=== PATIENT | female | born 1940 | race Caucasian/White ===

== ENCOUNTER → 2018-01-30 | Outpatient (CLI) | payer MEDICARE ==
[2018-01-30 13:28] LABS: T4, Free (Free Thyroxine) 1.05 ng/dL (0.78-2.19)
--- NOTE | 2018-01-30 15:48 | US ---
EXAMINATION TYPE: US thyroid st tissue head/neck DATE OF EXAM: 01/30/2018 COMPARISON: NONE CLINICAL HISTORY: 77-year-old female E05.00 Thyrotoxicosis with diffuse goiter without. TECHNIQUE: Multiple sonographic images of the thyroid gland are obtained. FINDINGS: GLAND SIZE: Right Lobe: 3.6 x 1.7 x 1.3 cm Overall Parenchyma: heterogenous Left Lobe: 4.6 x 1.5 x 0.9 cm Overall Parenchyma: heterogeneous Isthmus Thickness: 0.3 cm NODULES LEFT: # of nodules measured on left: 2 1. 1.2 X 0.9 x 1.2 cm hypoechoic solid nodule at the lower pole with well-defined margins; This nod ule is wider than tall and shows no intranodular vascularity. Prior size: No prior 2. 0.5 X 0.4 x 0.5 cm hypoechoic solid nodule at the mid pole with well-defined margins;. This nodu le is wider than tall and shows intranodular vascularity. Prior size: No prior Bilateral neck scanned, no evidence of lymphadenopathy. Two nodules within left lobe. IMPRESSION: 2 solid nodules on the left measuring 1.2 and 0.5 cm. If the patient has thyrotoxicosis, nuclear medi cine thyroid scan with uptake can be performed prior to considering biopsy.
== END ==
LOC: RADUSWWP 11:52
PROVIDERS: ATTEND Internal Medicine Endocrinology, Diabetes & Metabolism
DX: E04.2 Nontoxic multinodular goiter (principal); E05.00 Thyrotoxicosis with diffuse goiter without thyrotoxic crisis or storm
CPT/HCPCS: 76536; 84439; 84443; 84480

== ENCOUNTER → 2018-08-14 | Outpatient (CLI) | payer MEDICARE ==
[2018-08-14 10:20] LABS: HCT 40.4 % (34.0-46.0); MCH 29.9 pg (25.0-35.0); MCHC 32.2 g/dL (31.0-37.0); MCV 92.8 fL (80.0-100.0); Mean Platelet Volume 6.4; Platelet Count 292 k/uL (150-450); RBC 4.35 m/uL (3.80-5.40); RDW 12.3 % (11.5-15.5); WBC 5.8 k/uL (3.8-10.6)
[2018-08-14 16:26] LABS: Albumin 4.6 g/dL (3.80-4.90); Albumin/Globulin Ratio 2.71 (1.60-3.17); Anion Gap 9.8 mmol/L (4.00-12.00); Calcium 9.7 mg/dL (8.7-10.3); Carbon Dioxide 26.2 mmol/L (21.6-31.8); Globulin 1.7 g/dL (1.6-3.3); LDL Cholesterol,Calculated 133.2 mg/dL (0.0-131.0); Total Protein 6.3 g/dL (6.2-8.2); VLDL Calculation 15.8 mg/dL (5.00-40.00)
== END | disposition home or self-care (01) ==
LOC: LABWHC1 09:17
PROVIDERS: ATTEND Internal Medicine Cardiovascular Disease
DX: I48.0 Paroxysmal atrial fibrillation (principal); I11.9 Hypertensive heart disease without heart failure; R00.2 Palpitations
CPT/HCPCS: 36415; 80053; 80061; 84443; 85027; 86141

== ENCOUNTER → 2019-01-24 | Outpatient (CLI) | payer MEDICARE ==
--- NOTE | 2019-01-24 14:56 | US ---
EXAMINATION TYPE: US thyroid st tissue head/neck DATE OF EXAM: 01/24/2019 COMPARISON: 01/30/2018 thyroid ultrasound CLINICAL HISTORY: E04.2 Nontoxic multinodular goiter. Thyroid nodules GLAND SIZE: Right Lobe: 4.1 x 1.2 x 1.5 cm Overall Parenchyma: homogenous Left Lobe: 4.9 x 1.7 x 1.5 cm Overall Parenchyma: homogeneous Isthmus Thickness: .3 cm NODULES RIGHT: # of nodules measured on right: 0 LEFT: # of nodules measured on left: 2 1. 1.3 X 1.3 x 1.1 cm hypoechoic solid nodule at the lower pole with well-defined margins; . This nodule is wider than tall and shows intranodular vascularity. Prior size: 1.2 x .9 x 1.2 cm 2. .5 X .3 x .5 cm hypoechoic solid nodule at the mid pole with well-defined margins; . This nodule is wide as tall and shows intranodular vascularity. Prior size: .5 x .4 x .5 cm ISTHMUS: # of nodules measured in the isthmus: 0 Bilateral neck scanned, no evidence of lymphadenopathy. IMPRESSION: Minimal interval growth of the dominant left thyroid nodule in similar size of the smalle r left thyroid nodule.
== END | disposition home or self-care (01) ==
LOC: RADUSWWP 14:13
PROVIDERS: ATTEND Internal Medicine Endocrinology, Diabetes & Metabolism
DX: E04.1 Nontoxic single thyroid nodule (principal)
CPT/HCPCS: 76536

== ENCOUNTER → 2020-03-24 | Outpatient (CLI) | payer MEDICARE | END | disposition home or self-care (01) | LOC: LABWHC1 12:32 | PROVIDERS: ATTEND Internal Medicine Endocrinology, Diabetes & Metabolism | DX: E05.90 Thyrotoxicosis, unspecified without thyrotoxic crisis or storm (principal) | CPT/HCPCS: 36415; 84439; 84443; 84480 ==

== ENCOUNTER → 2020-03-24 | Outpatient (CLI) | payer MEDICARE ==
--- NOTE | 2020-03-24 13:03 | US ---
EXAMINATION TYPE: US thyroid st tissue head/neck DATE OF EXAM: 03/24/2020 COMPARISON: 01/24/2019 CLINICAL HISTORY: 79-year-old female E04.2 MULTINODULAR GOITER. Follow up thyroid nodules, on thyroid meds TECHNIQUE: Multiple sonographic images of the thyroid gland are obtained. FINDINGS: GLAND SIZE: Right Lobe: 4.3 x 1.5 x 1.7 cm Overall Parenchyma: homogenous Left Lobe: 4.5 x 1.5 x 1.0 cm Overall Parenchyma: homogeneous Isthmus Thickness: 0.2 cm NODULES RIGHT: # of nodules measured on right: 0 LEFT: # of nodules measured on left: 2 1. 1.3 X 1.0 x 1.1 cm inferior pole solid or almost completely solid, hypoechoic nodule, which is w ider than tall, with smooth margins, without echogenic foci. Prior size: 1.3 x 1.3 x 1.1 cm 2. 0.6 X 0.4 x 0.6 cm mid pole solid or almost completely solid, hypoechoic nodule, which is wider than tall, with smooth margins, without echogenic foci. Prior size: 0.5 x 0.3 x 0.5 cm ISTHMUS: # of nodules measured in the isthmus: 0 Bilateral neck scanned, no evidence of lymphadenopathy. IMPRESSION: 2 solid nodules on the left, largest measuring 1.3 cm (not significantly changed) at the lower pole a nd the other measuring 6 mm (previously measuring 5 mm) at the mid pole, not significantly changed.
== END | disposition home or self-care (01) ==
LOC: RADUSWWP 12:06
PROVIDERS: ATTEND Internal Medicine Endocrinology, Diabetes & Metabolism
DX: E04.2 Nontoxic multinodular goiter (principal)
CPT/HCPCS: 76536

== ENCOUNTER → 2022-02-15 | Outpatient (CLI) | payer MEDICARE ==
--- NOTE | 2022-02-15 11:09 | US ---
EXAMINATION TYPE: US thyroid st tissue head/neck DATE OF EXAM: 02/15/2022 COMPARISON: NONE CLINICAL HISTORY: E04.2 THYROID NODULE. GLAND SIZE: Right Lobe: 4.7x1.2x1.5 cm Overall Parenchyma: homogeneous Left Lobe: 4.4 x 1.3x 1.3 cm Overall Parenchyma: homogeneous NODULES RIGHT: # of nodules measured on right: 0 LEFT: # of nodules measured on left: 3 1. 0.8 X 0.4 x 0.7 cm, upper, solid or almost completely solid, hypoechoic nodule, which is wider t lugo tall, with smooth margins, echogenic foci. Prior size: not previously measured 2. 1.3 X 1.0 x 1.3 cm, lower, solid or almost completely solid, hypoechoic nodule, which is wider t lugo tall, with smooth margins, echogenic foci. Prior size: 1.3 x 0.9 x 1.1 cm 3. 0.7 X 0.5 x 0.6 cm, lower, solid or almost completely solid, hypoechoic nodule, which is wider t lugo tall, with smooth margins, echogenic foci. Prior size: 0.6 x 0.4 x 0.6 cm ISTHMUS: # of nodules measured in the isthmus: 0 Bilateral neck scanned, no evidence of lymphadenopathy. IMPRESSION: Stable nonspecific nodularity.
[2022-02-15 19:01] LABS: T4, Free (Free Thyroxine) 0.94 ng/dL (0.800-1.800)
== END | disposition home or self-care (01) ==
LOC: RADUSWWP 10:22
PROVIDERS: ATTEND Internal Medicine Endocrinology, Diabetes & Metabolism
DX: E04.2 Nontoxic multinodular goiter (principal); E05.90 Thyrotoxicosis, unspecified without thyrotoxic crisis or storm
CPT/HCPCS: 36415; 76536; 84439; 84443; 84480

== ENCOUNTER → 2023-07-13 | Outpatient (CLI) | payer MEDICARE ==
[2023-07-13 19:42] LABS: T4, Free (Free Thyroxine) 1.31 ng/dL (0.80-1.80)
== END | disposition home or self-care (01) ==
LOC: LABWHC1 13:21
PROVIDERS: ATTEND Internal Medicine Endocrinology, Diabetes & Metabolism
DX: E05.90 Thyrotoxicosis, unspecified without thyrotoxic crisis or storm (principal); R73.03 Prediabetes
CPT/HCPCS: 36415; 83036; 84439; 84443; 84480

== ENCOUNTER → 2024-05-09 | Outpatient (CLI) | payer MEDICARE ==
--- NOTE | 2024-05-09 22:58 | US ---
EXAMINATION TYPE: US thyroid st tissue head/neck DATE OF EXAM: 05/09/2024 COMPARISON: US 02/15/2022 CLINICAL INDICATION: Female, 83 years old with history of E04.2 NONTOXIC MULTINODULAR GOITER; Patient is on thyroid meds. Goiter. TECHNIQUE: Grayscale and color Doppler imaging of the thyroid gland. FINDINGS: GLAND SIZE: Right Lobe: 4.3 x 1.8 x 2.0 cm Overall Parenchyma: heterogeneous Left Lobe: 6.0 x 1.2 x 2.2 cm Overall Parenchyma: heterogeneous Isthmus Thickness: 0.3 cm NODULES RIGHT: # of nodules measured on right: 0 LEFT: # of nodules measured on left: 2 1. 1.7 X 1.2 x 1.1 cm, lower lateral, solid or almost completely solid, hypoechoic nodule, which is wider than tall, with smooth margins, without echogenic foci. Stable TR4 lesion. Prior size: 1.3 x 1.3 x 1.0 cm 2. 0.9 X 0.7 x 0.7 cm, mid mid, solid or almost completely solid, hypoechoic nodule, which is as w jaskaran as it is tall, with smooth margins, without echogenic foci. Stable TR 4 lesion. Prior size: 0.7 x 0.6 x 0.5 cm ISTHMUS: # of nodules measured in the isthmus: 0 Bilateral neck scanned, no evidence of lymphadenopathy. Heterogeneous normal-sized thyroid gland is redemonstrated. IMPRESSION: As above. No suspicious new nodules are seen. No significant change from most recent prio r. 2017 ACR TI-RADS LEVEL: TI-RADS 4 - Moderately Suspicious: Follow if > 1 cm, FNA if > 1.5 cm *Highest TI-RADS level nodule reported [email or web address] [facility], , 05/09/2024 10:56 PM
== END | disposition home or self-care (01) ==
LOC: RADUSWWP 14:32
PROVIDERS: ATTEND Internal Medicine Endocrinology, Diabetes & Metabolism
DX: E04.2 Nontoxic multinodular goiter (principal); Z79.890 Hormone replacement therapy
CPT/HCPCS: 76536

== ENCOUNTER → 2024-05-17 | Outpatient (CLI) | payer MEDICARE ==
--- NOTE | 2024-05-17 14:26 | XR ---
EXAMINATION TYPE: XR chest 2V DATE OF EXAM: 05/17/2024 1:51 PM COMPARISON: None CLINICAL INDICATION: Female, 83 years old with history of E21.3, I25.10, I25.83, I48.91, I10, E78.00, R73.9; [facility] TECHNIQUE: XR chest 2V Frontal and lateral views of the chest. FINDINGS: Lungs/Pleura: Low lung volumes are present. There is no evidence of pleural effusion, focal consolida tion, or pneumothorax. Pulmonary vascularity: Unremarkable. Heart/mediastinum: Cardiomediastinal silhouette is unremarkable. Musculoskeletal: No acute osseous pathology. Other findings: None IMPRESSION: Low lung volumes with a generalized hazy appearance which could represent atelectasis versus pulmonar y edema correlate with serum BNP. [facility], , 05/17/2024 2:24 PM
== END | disposition home or self-care (01) ==
LOC: RADXRMAIN 13:25
PROVIDERS: ATTEND Internal Medicine
DX: E21.3 Hyperparathyroidism, unspecified (principal); I25.10 Atherosclerotic heart disease of native coronary artery without angina pectoris; I25.83 Coronary atherosclerosis due to lipid rich plaque; I48.91 Unspecified atrial fibrillation; I10 Essential (primary) hypertension; E78.00 Pure hypercholesterolemia, unspecified; R73.9 Hyperglycemia, unspecified; F41.9 Anxiety disorder, unspecified; T78.40XD Allergy, unspecified, subsequent encounter; M19.90 Unspecified osteoarthritis, unspecified site
CPT/HCPCS: 71046